=== PATIENT | male | born 1935 | race Caucasian/White ===

== ENCOUNTER 2023-09-26 12:17 | Outpatient (CLI) | payer BC, SELFPAY | END 2023-09-26 12:18 | disposition home or self-care (01) | PROVIDERS: Visit Provider Emergency Medicine Emergency Medical Services | DX: R55 Syncope and collapse (principal) | CPT/HCPCS: A0425; A0427 ==

== ENCOUNTER 2023-09-26 13:01 | Emergency (ER) | payer BC, SELFPAY ==
[2023-09-26] VITALS (13 sets, daily range): BP systolic 113–169; BP diastolic 65–96; PULSE 83–89; RESP 14–16; TEMP 35.7; O2SAT 96–100
[2023-09-26 13:19] LABS: Glucose, Point-of-Care* 187 mg/dl (60-115)
--- NOTE | 2023-09-26 14:05 | ED.SYNCOPE ---
HPI - Syncope General Chief Complaint: Syncope/Fainted Stated Complaint: Syncopal Time Seen by Provider: 09/26/23 13:12 History of Present Illness HPI narrative: This 88-year-old male comes in for evaluation of a episode of lightheadedness and brief syncope. 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 He decided to sit down but symptoms persisted. A couple man then assisted him into the tenriism where he sat again. Ambulance arrived and noted systolic blood pressure at 60. An IV was established where he received IV fluids. At the time of his arrival here he feels back to normal and has normal vital signs. He does not report any chest pain and prior to this is been in good health. He does have type 2 diabetes which is managed with metformin and proper diet. He does take lisinopril. He states that he did have breakfast this morning. Related Data Home Medications ?Medication ?Instructions ?Recorded ?Confirmed Flomax 09/26/23 atorvastatin .ROUTE 09/26/23 lisinopril .ROUTE 09/26/23 metformin 09/26/23 Allergies Allergy/AdvReac Type Severity Reaction Status Date / Time No Known Drug Allergies Allergy Verified 09/26/23 13:05 Review of Systems Status of ROS: Reports: 10 or more systems reviewed and unremarkable except as noted in History and below Narrative: Constitutional: No fevers, no weight gain or loss. Eyes: No discharge. No vision changes. HENT: No congestion, no sore throat, no ear pain. Cardiovascular: No chest pain, no palpitations. Respiratory: No shortness of breath, no wheezes, no cough. Gastrointestinal: No abdominal pain, no vomiting, no diarrhea. Genitourinary: No dysuria, no hematuria. Musculoskeletal: Normal range of motion. Skin: No rashes, no pruritis. Neurological: No weakness, sensory change, speech change. Endo/Heme/Allergies: No bruising or bleeding. No polydipsia. Pysch: no suicidality, no anxiety, no insomnia. All other systems reviewed and are negative. [facility] Social History Smoking Status: Former smoker Do you use any of these nicotine containing products: None Second hand tobacco smoke exposure: No How often do you have a drink containing alcohol: never AUDIT-C Alcohol total score: 0 Non-prescribed substance use: denies use Exam Narrative: Exam Narrative: Constitutional: Well-developed, well-nourished, no acute distress. HEENT: Normocephalic, atraumatic. Neck: Normal range of motion. Nontender. Supple. Heart: Regular. No murmurs. Normal rate. Intact distal pulses. Lungs: Clear to auscultation. No chest discomfort. No wheezes, rhonchi, or rales. Abdomen: Normal bowel sounds. Nontender. No rebound tenderness. Genitalia: Deferred. Back: No midline tenderness. Normal range of motion. Extremities: Normal range of motion. No injury. Skin: Intact. No rash. Warm. No erythema or pallor. Neurologic: No altered sensation. No weakness. Alert and oriented. Psychiatric: No suicidality. No anxiety or depression. No insomnia. Nursing notes and vitals signs are reviewed. Const: Vital Signs, click to edit/add: Vital Signs - 24 hr 09/26/23 13:06 Temperature 96.3 F L Pulse Rate [Pulse Oximeter] 86 Respiratory Rate 16 Blood Pressure [Le ft Upper Arm] 114/65 Pulse Oximetry 96 Oxygen Delivery Me thod Room Air Course Vital Signs Vital signs: Initial Vital Signs Temperature 96.3 F L 09/26/23 13:06 Temperature Source Temporal Artery Scan 09/26/23 13:06 Pulse Rate 86 09/26/23 13:06 Respiratory Rate 16 09/26/23 13:06 Blood Pressure 114/65 09/26/23 13:06 Blood Pressure Mean 81 09/26/23 13:06 Blood Pressure Position Supine 09/26/23 13:06 Pulse Oximetry 96 09/26/23 13:06 Oxygen Delivery Method Room Air 09/26/23 13:06 Vital Signs Temperature 96.3 F L 09/26/23 13:06 Pulse Rate 86 09/26/23 13:06 Respiratory Rate 16 09/26/23 13:06 Blood Pressure 114/65 09/26/23 13:06 Pulse Oximetry 96 09/26/23 13:06 Oxygen Delivery Method Room Air 09/26/23 13:06 Temperature 96.3 F L 09/26/23 13:06 Pulse Rate 86 09/26/23 13:06 Respiratory Rate 16 09/26/23 13:06 Blood Pressure 114/65 09/26/23 13:06 Pulse Oximetry 96 09/26/23 13:06 Oxygen Delivery Method Room Air 09/26/23 13:06 MDM - Syncope MDM Narrative Medical decision making narrative: This patient had a episode of lightheadedness while in a standing position. He did sit down but did not recover in till he was laid down and did receive some IV fluids. He did have brief loss of consciousness. He arrives here with normal vital signs and feels back to normal. EKG shows normal sinus rhythm without any ST or T-wave changes. The patient states that he did have a checkup a couple weeks ago and lab results returned with normal findings. I did discuss role of lab and imaging options which the patient declined in a process of shared decision making. He was able to get up and ambulate and can continue his current plans. Lab Data Labs: Lab Results 09/26/23 Range/Units 13:19 POC Glucose 187 H (60-115) mg/dl ECG Data Attestation: I personally reviewed and interpreted this ECG as follows: Interpretation: Normal sinus rhythm. Rate is 84 beats per minute. There are no ST or T-wave abnormalities. Discharge Plan Discharge Clinical Impression: Vasovagal syncope Patient Disposition: Home, Self-Care Condition: Improved Additional Instructions: Continue current plans. Take plenty of fluids. If symptoms are recurrent return for further evaluation. Follow up with MD otherwise as needed. Prescriptions: No Action lisinopril .ROUTE atorvastatin .ROUTE metformin Flomax Stand Alone Forms: [employer] Info Instructions
== END 2023-09-26 14:50 | disposition home or self-care (01) ==
LOC: ED 14:33
PROVIDERS: Emergency Provider Emergency Medicine Emergency Medical Services
DX: R55 Syncope and collapse (principal)
CPT/HCPCS: 82947; 99283; 99284